=== PATIENT | female | born 1980 | race Two or more races ===

== ENCOUNTER → 2020-03-25 | Outpatient (CLI) | payer SELFPAY ==
[~2020-03-25] MED LIST: CEPH500 PO
== END ==
LOC: LAB SHORT 09:14 → PLD 09:14
DX: N72 Inflammatory disease of cervix uteri (principal)
CPT/HCPCS: 88305

== ENCOUNTER → 2020-12-21 | Outpatient (CLI) | payer OTHER ==
[2020-12-23 12:11] LABS: HPV 16 Negative (Negative); HPV 18 Negative (Negative); HPV OTHER HR TYPES Negative (Negative)
== END | disposition home or self-care (01) ==
LOC: LAB SHORT 13:07 → LAB 13:07
PROVIDERS: Family Medicine
DX: Z01.419 Encounter for gynecological examination (general) (routine) without abnormal findings (principal)
CPT/HCPCS: 87624; G0123

== ENCOUNTER → 2022-05-25 | Outpatient (CLI) | payer OTHER ==
[2022-05-26 15:11] LABS: HPV 16 Negative (Negative); HPV 18 Negative (Negative); HPV OTHER HR TYPES Negative (Negative)
== END ==
LOC: LAB 13:59 → LAB SHORT 13:59
PROVIDERS: Registered Nurse Community Health
DX: Z12.4 Encounter for screening for malignant neoplasm of cervix (principal)
CPT/HCPCS: 87624; G0123